=== PATIENT | female | born 1975 ===

== ENCOUNTER 2018-10-30 08:17 | Emergency (ER) | payer MEDICAID ==
[2018-10-30 08:27] VITALS: O2SAT 99
[2018-10-30] MEDS ORDERED: Sodium Chloride 0.9% 500 ML IV ONE (08:44)
--- NOTE | 2018-10-30 08:44 | C.PDOC ---
History Of Present Illness 43 y/o female with PMhx of fibromyalgia, presents to the ER complaining of suprapubic abdominal pain which has been present since yesterday. Patient states that the pain radiates to the back and rates the pain 9/10. Patient reports that she has nausea and vomited x5. Patient had her last bm yesterday. She notes that she took Naproxen 2x without relief yesterday. She also notes that she has history of irregular periods.Her her LMP on 09/27/18 and she also had vaginal bleeding on 10/08/18. She admits to having chills. Denies having CP, SOB, diarrhea, and urinary symptoms. Of note, patient is taking Cymbalta and Gabapentin for fibromyalgia. Time Seen by Provider: 10/30/18 08:29 Chief Complaint (Nursing): Abdominal Pain History Per: Patient History/Exam Limitations: no limitations Onset/Duration Of Symptoms: Days Current Symptoms Are (Timing): Still Present Severity: Moderate Pain Scale Rating Of: 9 Location Of Pain/Discomfort: Suprapubic Radiation Of Pain To:: Back Quality Of Discomfort: Sharp Associated Symptoms: Chills, Nausea, Vomiting, Back Pain. denies: Fever, Diarrhea, Chest Pain, Constipation, Urinary Symptoms Exacerbating Factors: Movement. denies: Food Alleviating Factors: denies: OTC Meds Last Bowel Movement: Yesterday Recent travel outside of the [place]: No Past Medical History Reviewed: Historical Data, Nursing Documentation, Vital Signs Vital Signs: Last Vital Signs Temp 98.4 F 10/30/18 08:26 Pulse 104 H 10/30/18 08:26 Resp 20 10/30/18 08:26 BP 147/63 10/30/18 08:26 Pulse Ox 99 10/30/18 08:26 - Medical History PMH: Fibromyalgia Surgical History: No Surg Hx Family History: States: No Known Family Hx - Social History Hx Alcohol Use: No Hx Substance Use: No - Immunization History Hx Tetanus Toxoid Vaccination: No Hx Influenza Vaccination: No Hx Pneumococcal Vaccination: No Review Of Systems Except As Marked, All Systems Reviewed And Found Negative. Constitutional: Positive for: Chills. Negative for: Fever, Weakness Cardiovascular: Negative for: Chest Pain, Palpitations Respiratory: Negative for: Shortness of Breath Gastrointestinal: Positive for: Nausea, Vomiting, Abdominal Pain. Negative for: Diarrhea Genitourinary: Negative for: Dysuria, Frequency, Incontinence Musculoskeletal: Positive for: Back Pain Skin: Negative for: Rash Neurological: Negative for: Headache, Dizziness Physical Exam - Physical Exam Appears: Non-toxic, No Acute Distress Skin: Normal Color, Warm, Dry Head: Atraumatic, Normacephalic Eye(s): bilateral: Normal Inspection Neck: Supple Chest: Symmetrical Cardiovascular: Rhythm Regular Respiratory: Normal Breath Sounds, No Rales, No Rhonchi, No Wheezing Gastrointestinal/Abdominal: Soft, Tenderness (suprapubic tenderness), No Guarding, No Rebound Back: CVA Tenderness (left-sided ) Neurological/Psych: Oriented x3, Normal Speech, Normal Cognition, Normal Sensation ED Course And Treatment - Laboratory Results Result Diagrams: 10/30/18 09:11 10/30/18 09:11 O2 Sat by Pulse Oximetry: 99 (RA) Pulse Ox Interpretation: Normal - Other Rad V-Gfs-Kanmyi Bones X-Ray: Viewed By Me, Read By Radiologist Interpretation: Date of service: 10/30/2018. PROCEDURE: Facial bones x-ray. HISTORY: s/p fall. COMPARISON: None. TECHNIQUE: Four views. FINDINGS: Questionable defect involving the left orbital floor. Nasal bones are unremarkable. Paranasal sinuses are clear. IMPRESSION: Questionable focal defect involving the left orbital floor. If there is concern for fracture, CT of the orbits can be obtained for further evaluation. - CT Scan/US CT-Abd & Pelv. Other Rad Studies (CT/US): Read By Radiologist, Radiology Report Reviewed CT/US Interpretation: Date of service: 10/30/2018. PROCEDURE: CT Abdomen and Pelvis with and without intravenous contrast. HISTORY: suprapubic pain radiating to back. COMPARISON: None available. TECHNIQUE: Axial images of th e abdomen were obtained in the pre contrast, portal venous and delayed phases of enhancement. Coronal and sagittal reformats were generated. Contrast dose: Radiation dose: Total exam DLP = 2019.88 mGy-cm. This CT exam was performed using one or more of the following dose reduction techniques: Automated exposure control, adjustment of the mA and/or kV according to patient size, and/or use of iterative reconstruction technique. FINDINGS: LOWER THORAX: No visible consolidation, pleural effusion, or pneumothorax. LIVER: Too small to characterize hepatic hypodensities (3); statistically likely cysts or hemangiomas. GALLBLADDER AND BILE DUCTS: Unremarkable. PANCREAS: Unremarkable. SPLEEN: Unremarkable. ADRENALS: Unremarkable. KIDNEYS AND URETERS: The kidneys enhance symmetrically. Bilateral hydroureteronephrosis without obstructing calculus identified. 2 mm nonobstructing left upper pole calculus. VASCULATURE: No aortic aneurysm. No aortic atherosclerotic calcification or mural plaque present. BOWEL: Stomach is nondistended. Lack of oral contrast limits evaluation for bowel pathology. Bowel loops appear within normal limits of caliber without evidence of obstruction. APPENDIX: The appendix appears within normal limits of caliber. No secondary signs of acute a ppendicitis. PERITONEUM: No significant free fluid. No definite free air. LYMPH NODES: No bulky adenopathy identified. BLADDER: Thick-walled under distended urinary bladder. REPRODUCTIVE: Uterus is present. BONES: Degenerative changes. OTHER FINDINGS: None. IMPRESSION: Bilateral hydrou reteronephrosis without obstructing calculus identified. 2 mm nonobstructing left upper pole calculus. Thick-walled under distended urinary bladder. Recommend correlation with urinalysis. Too small to characterize hepatic hypodensities (3); statistically likely cysts or hemangiomas. Progress Note: Labs and UA ordered. POC negative. Toradol given. elevated serum WBC and UA + WBC, + RBC, + few Bacteria. abd/pelvis CT ordered. Reassessed at 10:30am- pain slightly improved; mentions pain in nose s/p mechanical fall on rug x 3 weeks ago, no bleeding; did not seek medical evaulation but states it hurts when she touches it. Xray of facial bones ordered. CT revealed bilateral hydrouteronephrosis; left calculus in left upper pole of kidney. Antibiotics and Motrin given now. will follow up with urology. Discharged home with Macrobid and Motrin. Xray facial bones revealed Questionable focal defect involving the left orbital floor- patient was notified post discahrge Disposition Counseled Patient/Family Regarding: Studies Performed, Diagnosis, Need For Followup, Rx Given - Disposition Referrals: Ted Osman Jr., MD [Staff Provider] - Disposition: HOME/ ROUTINE Disposition Time: 13:31 Condition: IMPROVED Additional Instructions: EMIL TAO, thank you for letting us take care of you today. Your provider was Julisa Wilson MD/Fiona James PA-C and you were treated for LOWER ABD PAIN. The emergency medical care you received today was directed at your acute symptoms. If you were prescribed any medication, please fill it and take as directed. It may take several days for your symptoms to resolve. Return to the Emergency Department if your symptoms worsen, do not improve, or if you have any other problems. Please contact your doctor or call one of the physicians/clinics you have been referred to that are listed on the Patient Visit Information form that is included in your discharge packet. Bring any paperwork you were given at discharge with you along with any medications you are taking to your follow up visit. Our treatment cannot replace ongoing medical care by a primary care provider outside of the emergency department. Thank you for allowing the [facility] team to be part of your care today. Prescriptions: Ibuprofen [Motrin] 600 mg PO TID PRN #30 tab PRN Reason: Pain, Moderate (4-7) Nitrofurantoin Macrocrystals [Macrobid] 100 mg PO BID #10 cap Instructions: Renal Colic (DC), Hydronephrosis, Adult (DC) Forms: [employer] ([place]), Work Excuse - Clinical Impression Clinical Impression: Hydroureteronephrosis, Renal colic on left side, Nasal contusion, Deformity of orbit due to trauma or surgery - PA / PROFESSIONAL FEE CODER / Resident Statement MD/DO has reviewed & agrees with the documentation as recorded. - Scribe Statement The provider has reviewed the documentation as recorded by the Carenibe Olive Walden Provider Attestation All medical record entries made by the Scribe were at my direction and personally dictated by me. I have reviewed the chart and agree that the record accurately reflects my personal performance of the history, physical exam, medical decision making, and the department course for this patient. I have also personally directed, reviewed, and agree with the discharge instructions and disposition.
[2018-10-30] MEDS ORDERED: Sodium Chloride 0.9% 1,000 ML ONE (09:10)
[2018-10-30 09:17] LABS: BASO % 0.2 % (0.0-2.0); EOS # 0.1 K/uL (0.0-0.7); EOS % 1.1 % (0.0-4.0); LYMPH # 1.3 K/uL (1.0-4.3); LYMPH % 11.8 % (20.0-40.0); MEAN CELL VOLUME 90.5 fL (81.0-99.0); MEAN CORPUSCULAR HEMOGLOBIN 31.1 pg (27.0-31.0); MEAN CORPUSCULAR HGB CONC 34.4 g/dL (33.0-37.0); MEAN PLATELET VOLUME 7.4 fL (7.2-11.7); MONO # 0.9 K/uL (0.0-0.8); MONO % 7.8 % (0.0-10.0); NEUT % 79.1 % (50.0-75.0); RBC 4.19 Mil/uL (3.80-5.20); RED CELL DISTRIBUTION WIDTH 13.6 % (11.5-14.5); WHITE BLOOD COUNT 11.3 K/uL (4.8-10.8)
[2018-10-30 09:20] LABS: HCG,QUALITATIVE URINE NEGATIVE (NEGATIVE)
[2018-10-30 09:34] LABS: ALB/GLOB RATIO 1.8 (1.0-2.1); ALBUMIN 4.5 g/dL (3.5-5.0); ALT/SGPT 15 U/L (9-52); AST/SGOT 23 U/L (14-36); BLOOD UREA NITROGEN 18 mg/dL (7-17); CALCIUM 9.3 mg/dl (8.6-10.4); GFR NON-AFRICAN AMERICAN 60; LIPASE 34 U/L (23-300)
[2018-10-30 09:35] LABS: SQUAMOUS EPITHIAL 23 /hpf (0-5); URINE BACTERIA FEW (<OCC); URINE BILIRUBIN NEGATIVE (NEGATIVE); URINE BLOOD 3+ (NEGATIVE); URINE CLARITY Hazy (Clear); URINE COLOR Yellow (YELLOW); URINE GLUCOSE (UA) NORMAL (Normal); URINE LEUKOCYTE ESTERASE NEG Leu/uL (Negative); URINE PROTEIN 2+ mg/dL (NEGATIVE); URINE UROBILINOGEN NORMAL mg/dL (0.2-1.0)
[2018-10-30] MEDS ORDERED: Iodixanol 320 MG/ML 200 ML BOTTLE IV ONE (12:17)
[2018-10-30 12:59] VITALS: BP 148/89; PULSE 85; RESP 18; TEMP 98.3
--- NOTE | 2018-10-30 13:08 | CT ---
Date of service: 10/30/2018 PROCEDURE: CT Abdomen and Pelvis with and without intravenous contrast HISTORY: suprapubic pain radiating to back COMPARISON: None available TECHNIQUE: Axial images of the abdomen were obtained in the pre contrast, portal venous and delayed phases of enhancement. Coronal and sagittal reformats were generated. Contrast dose: Radiation dose: Total exam DLP = 2019.88 mGy-cm. This CT exam was performed using one or more of the following dose reduction techniques: Automated exposure control, adjustment of the mA and/or kV according to patient size, and/or use of iterative reconstruction technique. FINDINGS: LOWER THORAX: No visible consolidation, pleural effusion, or pneumothorax. LIVER: Too small to characterize hepatic hypodensities (3); statistically likely cysts or hemangiomas. GALLBLADDER AND BILE DUCTS: Unremarkable. PANCREAS: Unremarkable. SPLEEN: Unremarkable. ADRENALS: Unremarkable. KIDNEYS AND URETERS: The kidneys enhance symmetrically. Bilateral hydroureteronephrosis without obstructing calculus identified. 2 mm nonobstructing left upper pole calculus. VASCULATURE: No aortic aneurysm. No aortic atherosclerotic calcification or mural plaque present. BOWEL: Stomach is nondistended. Lack of oral contrast limits evaluation for bowel pathology. Bowel loops appear within normal limits of caliber without evidence of obstruction. APPENDIX: The appendix appears within normal limits of caliber. No secondary signs of acute appendicitis. PERITONEUM: No significant free fluid. No definite free air. LYMPH NODES: No bulky adenopathy identified. BLADDER: Thick-walled under distended urinary bladder. REPRODUCTIVE: Uterus is present. BONES: Degenerative changes. OTHER FINDINGS: None. IMPRESSION: Bilateral hydroureteronephrosis without obstructing calculus identified. 2 mm nonobstructing left upper pole calculus. Thick-walled under distended urinary bladder. Recommend correlation with urinalysis. Too small to characterize hepatic hypodensities (3); statistically likely cysts or hemangiomas.
[2018-10-30] MEDS ORDERED: cefTRIAXone 1 gm in Water For Injection 2.1 ML IM STA (13:42)
--- NOTE | 2018-10-30 13:51 | RAD ---
Date of service: 10/30/2018 PROCEDURE: Facial bones x-ray HISTORY: s/p fall COMPARISON: None. TECHNIQUE: Four views FINDINGS: Questionable defect involving the left orbital floor. Nasal bones are unremarkable. Paranasal sinuses are clear. IMPRESSION: Questionable focal defect involving the left orbital floor. If there is concern for fracture, CT of the orbits can be obtained for further evaluation.
== END 2018-10-30 14:25 | disposition home or self-care (01) ==
LOC: C.ER 08:17
DX: N13.2 Hydronephrosis with renal and ureteral calculous obstruction (principal); S00.33XA Contusion of nose, initial encounter; W18.30XA Fall on same level, unspecified, initial encounter; H05.30 Unspecified deformity of orbit
CPT/HCPCS: 70150; 74178; 80053; 81001; 81025; 83690; 84703; 85025; 87086; 96374; 96375; 99285; J1885; J2405; J7040; Q9966